=== PATIENT | male | born 1980 | race Caucasian/White ===

== ENCOUNTER 2018-12-22 08:18 | Emergency (ER) | payer BC, MEDICAID, OTHER ==
[2018-12-22] MEDS ORDERED: Sodium Chloride 0.9% 10 ML Syringe FLUSH PRN (08:36)
[2018-12-22] MEDS ORDERED: Sodium Chloride 0.9% 1,000 ML IV ONE (08:36)
[2018-12-22] MEDS ORDERED: Metoclopramide 10 MG/2 ML SDV IVPUSH ONE (08:36)
[2018-12-22] MEDS ORDERED: Pantoprazole 40 MG in Sodium Chloride 0.9% 100 ML IV ONE (08:36)
[2018-12-22 08:40] VITALS: BP 139/93; PULSE 103
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
[2018-12-22] MEDS ORDERED: Sodium Chloride 0.9% 50 ML IV SCH (08:45)
[2018-12-22] MEDS ORDERED: Iopamidol 755 Mg/ML 75 ML Bottle IVPUSH ONE (08:50)
[2018-12-22] MEDS ORDERED: Pantoprazole 40 MG Vial IVPUSH ONE (09:05)
[2018-12-22 09:14] LABS: ANION GAP 16.7 mmol/L (5-15); CHLORIDE,CL 107 mmol/L (98-115); SODIUM,NA 140 mmol/L (136-145)
--- NOTE | 2018-12-22 09:40 | CT ---
[id number] CT/CT Abdomen Pelvis W IV EXAM: ABDOMEN AND PELVIS CT WITH CONTRAST INDICATION: Gastrointestinal bleeding. COMPARISON: None. DISCUSSION: Scattered degenerative changes in the spine. Mild chronic appearing T11 compression fracture. 47 x 33 mm exophytic cyst lower pole right kidney. There are few small hypodensities in the left kidney that are too small to further characterize and a 11 mm hypodensity in the spleen is too small to further characterize. Small fat-containing umbilical hernia. Mild prostatomegaly. Prior gastric bypass. The liver, gallbladder, pancreas, adrenal glands and large bowel are normal in appearance. IMPRESSION: 1. Changes of prior gastric bypass. 2. No acute findings. Kimani Spann MD 12/22/18 0937 Thank you for allowing us to participate in the care of your patient.
== END 2018-12-22 10:20 | disposition home or self-care (01) ==
LOC: KA.ED 08:18
DX: K92.0 Hematemesis (principal); R10.84 Generalized abdominal pain; E11.9 Type 2 diabetes mellitus without complications; I10 Essential (primary) hypertension; E78.00 Pure hypercholesterolemia, unspecified; K21.9 Gastro-esophageal reflux disease without esophagitis; Z79.899 Other long term (current) drug therapy
CPT/HCPCS: 74177; 80053; 82150; 83690; 85025; 85610; 85730; 96361; 96374; 96375; 99285; C9113; J2765; J7030; J7050; Q9967